=== PATIENT | male | born 1970 | race Caucasian/White ===

== ENCOUNTER → 2023-04-21 | Outpatient (CLI) | payer BC ==
--- NOTE | 2023-04-26 20:54 | CTL ---
EXAMINATION TYPE: CT Low Dose Lung DATE OF EXAM: 04/21/2023 4:44 PM CLINICAL INDICATION:Male, 52 years old with history of F17.210 NICOTINE DEPENDENCE, CIGARETTES, UNCOM PLIC; current smoker, 1 pack a day x35 years , history of tobacco use. COMPARISON: None. Baseline study. TECHNIQUE: CT scan of the chest obtained without contrast from approximately the lung apices through the upper abdomen. Axial, coronal and sagittal reformatted images were obtained. Low dose technique w as utilized for nodule screening purposes. CT DLP: 110.8 mGycm, Automated exposure control for dose reduction was used. CT Contrast: Contrast used: None Oral contrast used: None FINDINGS: Lack of intravenous contrast and low dose technique limits the evaluation of the vascular and soft ti ssue structures. LUNGS: No evidence of pulmonary fibrosis. No evidence of focal consolidation, pneumothorax or pleural effusion. There are emphysematous changes bilaterally, mild with an upper lobe predominance. Nodules: RUL: None RML: None RLL: None GEMMA: None LLL: None AIRWAY: Central airways are patent. There is minimal linear strandy secretion in the distal trachea. LOWER NECK: No significant findings. HEART AND VASCULATURE: Heart size upper normal.. Moderate coronary artery calcifications and/or stent s, mostly in the LAD. Aorta shows no significant calcification. Small calcification in the proximal left subclavian artery. No evidence of significant aortic aneurysm. Mild ectasia of the ascending seg ment measures 3.7 cm, proximal descending segment 3.4 cm. Pulmonary trunk is nonenlarged, measures 2. 2 cm. MEDIASTINUM: No gross evidence of adenopathy. SOFT TISSUES/LYMPH NODES: Unremarkable soft tissues. No axillary adenopathy. UPPER ABDOMEN: No significant findings. MUSCULOSKELETAL: Mild disc degeneration changes are present throughout the thoracolumbar spine. No a cute findings. IMPRESSION: 1. No clinically significant pulmonary nodules. 2. Mild centrilobular emphysema. 3. Moderate coronary arterial calcifications and/or stents, greatest in the LAD. CT LUNG RAD AND CT CHEST RECOMMENDATION: Lung-Rad 1 Negative: Continue annual screening with LDCT in 12 months. C Modifier (Personal history of lung cancer?): No. S Modifier (Other clinically significant or potentially significant findings?): Yes (see below). Other significant or potentially significant abnormalities: Coronary arterial calcification moderate or severe. Recommend smoking cessation (if current smoker), or continuation of smoking cessation (if prior smoke r). Annual screening for lung cancer with low-dose computed tomography is recommended in adults ages 55 to 77 years who have a 30 pack-year smoking history and currently smoke or have quit within the pa st 15 years. Screening should be discontinued once a person has not smoked for 15 years or develops a health problem that substantially limits life expectancy or the ability or willingness to have curat lexie lung surgery. Lung rads 2021 [email or web address]
== END | disposition home or self-care (01) ==
LOC: RADCTMAIN 16:15
PROVIDERS: ATTEND Family Medicine
DX: Z12.2 Encounter for screening for malignant neoplasm of respiratory organs (principal); J43.2 Centrilobular emphysema; I25.10 Atherosclerotic heart disease of native coronary artery without angina pectoris; F17.210 Nicotine dependence, cigarettes, uncomplicated
CPT/HCPCS: 71271

== ENCOUNTER → 2024-06-27 | Outpatient (CLI) | payer BC ==
[2024-06-27 14:24] VITALS: BP 163/79; PULSE 94; RESP 16; TEMP 98.7
--- NOTE | 2024-06-27 20:17 | P.SLEEP ---
History of Present Illness H&P Date: 06/27/24 This is a 53-year-old male patient who was having difficulties in sleep. The patient reports limited number of hours of sleep and difficulty in inducing and maintaining sleep. This problems been going on since November 2023. Prior to that, the patient sleep was essentially within normal limits. 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 He does not fall asleep on the job. His functionality of the job is maintained. He feels quite fatigued. He goes to bed at around 8 to 9 PM and it takes him more than 30 minutes to fall asleep. After falling asleep, the patient wakes up frequently and ultimately he gets out of bed at around 2 AM in the morning. He is out of bed by 4 AM. On weekends, he maintains the same sleep schedule. He believes that he is averaging around 2 to 3 hours of sleep. He snores. He wakes up few times to urinate as the patient drinks around 3-4 beers after coming back from work. Denies having any history of alcoholism. He also complains of chronic burning and restlessness in his lower extremities. He describes pain as if he is walking on glass. No numbness in his lower extremities. No tingling. No body jerks. No leg kicks as described by family members. Recently, the patient's brother committed suicide and this has been another exacerbating factor which further impairs his ability to initiate and maintain sleep. No history of head trauma. No excessive utilization of any caffeinated beverages. Drinks 2 cups of coffee in the morning. No nighttime chest pain or shortness of breath. No nighttime heartburn. No history of any panic attacks. He has history of depression. No PTSD. No bipolar disorder. Other comorbid conditions include COPD, and hyperlipidemia. The patient has already been tried on various medications. He was given Remeron by his primary care that had no impact on his sleep quality. He was also given temazepam and later on Lunesta without any significant benefit. More recently, he was started on Seroquel 200 mg at bedtime and this was started approximately 2 to 3 weeks ago and reports increase in the number of hours of sleep while taking Seroquel. He was also given hydroxyzine 25 mg at bedtime and he has not started the medication yet. No obesity. His body mass index is 28.3. No previous history of substance abuse. His current [place] score is at 2. Review of Systems Constitutional: Reports fatigue Eyes: denies as per HPI, denies blurred vision, denies bulging eye, denies decreased vision, denies diplopia, denies discharge, denies dry eye, denies irritation, denies itching, denies pain, denies photophobia, denies loss of peripheral vision, denies loss of vision, denies tunnel vision/blind spots Ears: deny: decreased hearing, ear discharge, earache, tinnitus Ears, nose, mouth and throat: Reports as per HPI Breasts: absent: as per HPI, gynecomastia Cardiovascular: Reports as per HPI Respiratory: Reports snoring Gastrointestinal: Reports as per HPI Genitourinary: Reports as per HPI Musculoskeletal: Reports as per HPI (Pain and burning in his feet bilaterally) Musculoskeletal: absent: ankle pain, ankle stiffness, ankle swelling, as per HPI, elbow pain, elbow stiffness, elbow swelling, foot pain, foot stiffness, foot swelling, hand pain, hand stiffness, hand swelling, hip pain, hip stiffness, hip swelling, knee pain, knee stiffness, knee swelling, shoulder pain, shoulder stiffness, shoulder swelling, wrist pain, wrist stiffness, wrist swelling Integumentary: Reports as per HPI Neurological: Reports as per HPI Psychiatric: Reports depression, Reports insomnia, Reports sleep disturbances Endocrine: Reports as per HPI, Reports fatigue Hematologic/Lymphatic: Reports as per HPI Allergic/Immunologic: Reports as per HPI Past Medical History Past Medical History: COPD, Hyperlipidemia Additional Past Medical History / Comment(s): COPD, hyperlipidemia, erectile dysfunction, depression History of Any Multi-Drug Resistant Organisms: None Reported Past Surgical History: No Surgical Hx Reported Past Anesthesia/Blood Transfusion Reactions: No Reported Reaction Past Psychological History: Anxiety Smoking Status: Current every day smoker Past Alcohol Use History: Daily Past Drug Use History: None Reported - Past Family History Mother Family Medical History: Rheumatoid Arthritis (RA) Additional Family Medical History / Comment(s): passed 2020 Father Family Medical History: Pneumonia Additional Family Medical History / Comment(s): lung problems, snoring, passed 2022 Brother(s) Family Medical History: Diabetes Mellitus Additional Family Medical History / Comment(s): passed in 2011, other brother committed suicied on 06/14/24 Medications and Allergies Home Medications Medication Instructions Recorded Confirmed Type QUEtiapine FUMARATE 200 mg PO HS 06/27/24 06/27/24 History hydrOXYzine HCL [Hydroxyzine HCl] 25 mg PO DIRECTED PRN 06/27/24 06/27/24 History Physical Exam Vitals: Vital Signs Temp Pulse Resp BP Pulse Ox 06/27/24 14:23 98.7 F 94 16 163/79 97 Intake and Output 06/27/24 06/27/24 06/27/24 06:59 14:59 22:59 Other: Weight 88.451 kg The patient appeared well nourished and normally developed. Vital signs as documented. Head exam is unremarkable. No scleral icterus or corneal arcus noted. Neck is without jugular venous distension, thyromegaly, or carotid bruits. Carotid upstrokes are brisk bilaterally. Lungs are clear to auscultation and percussion. Cardiac exam reveals the PMI to be normally sized and situated. Rhythm is regular. First and second heart sounds normal. No murmurs, rubs or gallops. Abdominal exam reveals normal bowel sounds, no masses, no organomegaly and no aortic enlargement. Extremities are nonedematous and both femoral and pedal pulses are normal. Examination of the skin revealed no evidence of significant rashes, suspicious appearing nevi or other concerning lesions. Neurologically, the patient is awake and alert and the patient does not have any focal neurological deficit. Cranial nerves are essentially intact. Assessment and Plan Plan: Chronic insomnia, likely psychophysiologic. The exact trigger for his insomnia is not clear and the patient has developed difficulties in sleep induction and maintenance over the past 9 months. For now, he is averaging around 3 hours of sleep and he suffers from chronic fatigue. Functionality at work is still preserved. Given Remeron, temazepam and Lunesta and all of those medications failed to improve his ability to fall and maintain sleep. More recently, started on Seroquel 200 mg at bedtime with some improvement in sleep quality and the patient was also started on hydroxyzine 25 mg at bedtime. He has history of snoring. He has also chronic pain and burning sensation lower extremities. Rule out neuropathy, could be occupational as the patient is a tool design checker, with significant metal dust and fume exposure. In addition, the patient is drinking around 3-4 beers every night. Denies having any alcoholism. COPD Chronic smoker Hyperlipidemia History of depression Plan Chronic insomnia with limited number of hours of sleep and poor ability to initiate and maintain sleep Patient is responding to Seroquel. Hydroxyzine was added. I also suspect it is excessive alcohol drinking at night is contributing to his sleep fragmentation. Furthermore, the patient has symptoms of neuropathy with significant discomfort in his feet which probably is another contributing factor. Obstructive sleep apnea cannot be completely ruled out as another contributing factor for sleep fragmentation Discussed with the patient the principles of cognitive behavioral therapy including sleep restriction and stimulus control Will recommend good sleep hygiene measures Will avoid alcohol drinking at least 3 hours prior to going to bed Continue Seroquel 200 mg at bedtime Start hydroxyzine 25 mg at bedtime Start the patient on Neurontin 600 mg p.o. twice a day Home sleep study in 4 to 6 weeks time to rule out the possibility of underlying sleep breathing disorder. Time with Patient: Greater than 30 Sleep Note - Sleep Data ESS Total: 2 - Sleep Note Sleep Note: Temperature: 98.7 F Pulse Rate: 94 Respiratory Rate: 16 Blood Pressure: 163/79 SpO2: 97 Height: 5 ft 9.5 in Weight: 88.451 kg BMI: Neck Circumference: 17
== END ==
LOC: 3 N SLEEP 14:05
PROVIDERS: ATTEND Internal Medicine
DX: G47.09 Other insomnia (principal); J44.9 Chronic obstructive pulmonary disease, unspecified; E78.5 Hyperlipidemia, unspecified; Z86.59 Personal history of other mental and behavioral disorders
CPT/HCPCS: 99211

== ENCOUNTER → 2024-07-28 | Outpatient (CLI) | payer BC ==
--- NOTE | 2024-08-06 21:21 | P.PCN ---
Date of Procedure: 07/28/24 Operative Findings: Home sleep study report Date of service is 07/28/24 History This is a 53-year-old male patient who was having difficulties in sleep. The patient reports limited number of hours of sleep and difficulty in inducing and maintaining sleep. This problems been going on since November 2023. Prior to that, the patient sleep was essentially within normal limits. 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 He does not fall asleep on the job. His functionality of the job is maintained. He feels quite fatigued. He goes to bed at around 8 to 9 PM and it takes him more than 30 minutes to fall asleep. After falling asleep, the patient wakes up frequently and ultimately he gets out of bed at around 2 AM in the morning. He is out of bed by 4 AM. On weekends, he maintains the same sleep schedule. He believes that he is averaging around 2 to 3 hours of sleep. He snores. He wakes up few times to urinate as the patient drinks around 3-4 beers after coming back from work. Denies having any history of alcoholism. He also complains of chronic burning and restlessness in his lower extremities. He describes pain as if he is walking on glass. No numbness in his lower extremities. No tingling. No body jerks. No leg kicks as described by family members. Recently, the patient's brother committed suicide and this has been another exacerbating factor which further impairs his ability to initiate and maintain sleep. No history of head trauma. No excessive utilization of any caffeinated beverages. Drinks 2 cups of coffee in the morning. No nighttime chest pain or shortness of breath. No nighttime heartburn. No history of any panic attacks. He has history of depression. No PTSD. No bipolar disorder. Other comorbid conditions include COPD, and hyperlipidemia. The patient has already been tried on various medications. He was given Remeron by his primary care that had no impact on his sleep quality. He was also given temazepam and later on Lunesta without any significant benefit. More recently, he was started on Seroquel 200 mg at bedtime and this was started approximately 2 to 3 weeks ago and reports increase in the number of hours of sleep while taking Seroquel. He was also given hydroxyzine 25 mg at bedtime and he has not started the medication yet. No obesity. His body mass index is 28.3. No previous history of substance abuse. His current [place] score is at 2. Pertinent physical findings The patient has a weight of 195 pounds, [place] score of 3. Technical description The [employer] Apnea[employer] system was used to complete his home sleep study. This is a type III home sleep study evaluation. The total recording duration was 8 hours and 12 minutes. The study started 8:17 PM and ended at 4:30 AM. There was a total of 7 hours and 7 minutes of flow monitoring and 7 hours and 32 minutes of oxygen saturation monitoring. Results Respiratory analysis showed a total of 89 obstructive apneas and 38 obstructive hypopneas. The resulting AHI was 17.8, slightly worsening supine body position with an AHI of 24.1 while supine. Oxygenation analysis The average pulse ox was 92% during sleep. Minimum pulse ox of 73% and the patient spent approximately 59 minutes of sleep time below pulse ox of 89% Cardiac summary Average heart rate of 75 minimum heart rate 64 and a maximum rate of 99 Assessment Obstructive sleep apnea, moderate in severity with an AHI of 17.8, slightly worse in the supine body position Nocturnal oxygen desaturation secondary to above Chronic insomnia, likely psychophysiologic. The exact trigger for his insomnia is not clear and the patient has developed difficulties in sleep induction and maintenance over the past 9 months. For now, he is averaging around 3 hours of sleep and he suffers from chronic fatigue. Functionality at work is still preserved. Given Remeron, temazepam and Lunesta and all of those medications failed to improve his ability to fall and maintain sleep. More recently, started on Seroquel 200 mg at bedtime with some improvement in sleep quality and the patient was also started on hydroxyzine 25 mg at bedtime. He has also chronic pain and burning sensation lower extremities. 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 In addition, the patient is drinking around 3-4 beers every night. Denies having any alcoholism. COPD Chronic smoker Hyperlipidemia History of depression Plan Chronic insomnia with limited number of hours of sleep and poor ability to initiate and maintain sleep Patient is responding to Seroquel. Hydroxyzine was added. I also suspect it is excessive alcohol drinking at night is contributing to his sleep fragmentation. Furthermore, the patient has symptoms of neuropathy with significant discomfort in his feet which probably is another contributing factor. Obstructive sleep apnea cannot be completely ruled out as another contributing factor for sleep fragmentation Discussed with the patient the principles of cognitive behavioral therapy including sleep restriction and stimulus control Will recommend good sleep hygiene measures Will avoid alcohol drinking at least 3 hours prior to going to bed Continue Seroquel 200 mg at bedtime Hydroxyzine 25 mg at bedtime Neurontin 600 mg p.o. twice a day The patient will be asked to come in to discuss with me his ongoing progress regarding his chronic insomnia and treatment response. At the same time, we will also discuss the results of the home sleep study and make further recommendations whether the patient would benefit from CPAP therapy versus alternative treatments. Will continue to follow.
== END ==
LOC: 3 N SLEEP 12:14
PROVIDERS: ATTEND Internal Medicine Critical Care Medicine
DX: G47.33 Obstructive sleep apnea (adult) (pediatric) (principal); E78.5 Hyperlipidemia, unspecified; J44.9 Chronic obstructive pulmonary disease, unspecified; G89.29 Other chronic pain; F17.210 Nicotine dependence, cigarettes, uncomplicated; Z86.59 Personal history of other mental and behavioral disorders